=== PATIENT | male | born 1975 | race Caucasian/White ===

== ENCOUNTER 2018-12-05 09:08 | Emergency (ER) | payer MEDICAID, OTHER ==
[~2018-12-05] VITALS: Wt 60.0 kg
[~2018-12-05 09:08] MED LIST: IBUP-1542 PO; MULTI PO
[2018-12-05 09:18] VITALS: BP 130/78; PULSE 89; RESP 18
[2018-12-05] MEDS ORDERED: IBUPROFEN 600 MG TAB PO ONE (10:00)
== END 2018-12-05 11:56 | disposition left against medical advice (07) ==
LOC: FTE 09:08
DX: R51 Headache (principal); Z59.0 Homelessness
CPT/HCPCS: Z7502; Z7610; 99282